=== PATIENT | female | born 1975 | race Caucasian/White ===

== ENCOUNTER 2024-01-14 14:34 | Outpatient (AMB) | payer OTHER, SELFPAY ==
[2024-01-14 15:15] VITALS: BP 131/78; PULSE 72; O2SAT 98; BMI 28.3
--- NOTE | 2024-01-14 15:15 | MHC.PC.OV ---
Vital Signs 01/14/24 15:15 Height 5 ft 5 in Weight 170 lb BMI 28.3 BP 131/78 Blood Pressure Location Rt brachial Pulse 72 Pulse Source Pulse Oximeter Pulse Oximetry (%) 98 Oxygen Delivery Method Room Air Intake Visit Reasons: New patient-high BP Intake Note: Patient is here with concern of cough, and high blood pressure, prison librarian referral, and allergy Allergies seafood Allergy (Mild, Verified 01/14/24 15:23) Anaphylaxis treenuts Allergy (Mild, Uncoded 01/14/24 15:23) rash, anaphylaxis Tobacco use date assessed: 01/14/24 Dental Screening Dental Screen Date: 01/14/24 Did you have a dental visit in the last 12 months?: Yes Did you have a dental problem in the last 6 months where you did not have access to dental care?: No Was dental information given to patient?: Patient has dentist HPI New patient-high BP HPI Details New patient Prior PCP:?Leena Sweeney Last office visit/CPE: September for HTN. CPE in March. Acute issue(s): Cough -Had covid in August. Denies any chest tightness/pain. She states she feels like it is a productive cough. Refer to Allergy Medicine. Tree nuts and seafood PMHx: HTN, Anaphylaxis/Allergies, Covid infection, Asthma, Gestational DM SurgHx: [place] teeth FHx: Mom: Diabetes, Endometrial/Uterine Cancer. Dad: DM, HTN, CVA. GM: Colon CA, SocHx: Nonsmoker. EtOH none. MJ no drugs. PFSH Medical History (Updated 01/14/24 @ 16:32 by Rosalino Lambert) Depression Anxiety Acute eczema Gestational diabetes Arthritis High blood pressure Asthma Surgical History (Updated 01/14/24 @ 15:27 by Jessenia Barreto CMA) [place] teeth extracted Family History (Updated 01/14/24 @ 15:29 by Jessenia Barreto CMA) Mother Diabetes Endometrial cancer Father High blood pressure High cholesterol Diabetes Maternal Grandmother Colon cancer Social History (Updated 01/14/24 @ 15:32 by Jessenia Barreto CMA) Household Members: Spouse and Children Housing: House Are you a primary women's health care nurse practitioner to a significant other at home: No Do you presently have visiting nurse or other home services: No 75 years or older and lives alone: No Alcohol intake: never Patient Tobacco Use Status: Never used Tobacco e-Cigarette/Vaping Use: Never Used service: No Current occupational status: employed 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 Cognitive needs: No Hearing needs: No Vision needs: No Questionnaire Thrive Questionnaire Date Thrive assessed: 01/14/24 I am a: Patient What is your living situation today?: I have a steady place to live Within the past 12 months, did the food you bought not last and you didn't have the money to get more?: Never true Within the past 12 months, did you worry whether your food would run out before you got money to buy more?: Never true Do you have trouble paying for medicines?: No Do you have trouble getting transportation to medical appointments?: No Do you have trouble paying your heating and electricity bill?: No Do you have trouble taking care of your child, family member or friend?: No Do you have trouble with day-to-day activities such as bathing, preparing meals, shopping, managing finances, etc.?: No Are you currently unemployed and looking for a job?: No Are you interested in more education?: No THRIVE Score: 0 AUDIT C Alcohol Use Questionnaire (AUDIT-C) 1. How often do you have a drink containing alcohol?: Never 3. How often do you have six or more drinks on one occasion?: Never Total Score: 0 RILEY-7 AMB Questionnaire RILEY-7 Date RILEY - 7 assessed: 01/14/24 Feeling nervous, anxious, or on edge: 0 = Not at all Not being able to stop or control worryin = Not at all Worrying too much about different things: 1 = Several days Trouble relaxin = Several days Being so restless that it is hard to sit still: 0 = Not at all Becoming easily annoyed or irritable: 0 = Not at all Feeling afraid as if something awful might happen: 0 = Not at all Total RILEY-7 score (0-4 normal; 5-9 mild; 10-14 moderate; 15-21 severe): 2 Source: Developed by Drs. John Paul Worrell, Esmer Parada, Everette Hay and colleagues, with an educational caleb from [employer]. ACT Questionnaire In the past 4 weeks, how much of the time did your asthma keep you from getting as much done at work, school or at home?: None of the time During the past 4 weeks, how often have you had shortness of breath?: Not at all During the past 4 weeks, how often did your asthma symptoms wake you up at night or earlier than usual in the morning?: Not at all During the past 4 weeks, how often have you had to use your rescue inhaler or nebulizer medication?: Not at all How would you rate your asthma control during the past 4 weeks?: Completely controlled Score: 25 Review of Systems Const Denies chills, Denies fatigue, Denies fever(s), Denies headache(s) and Denies weakness ENT Denies dizziness and Denies headache(s) Card Denies chest pain, Denies lightheadedness, Denies dyspnea and Denies other (Palpitations) Resp Denies cough, Denies dyspnea, Denies wheezing and Denies other ( shortness of breath) Musc Denies numbness and Denies tingling Neuro Denies dizziness, Denies headache(s), Denies numbness, Denies tingling, Denies paresthesias and Denies weakness Psych Denies anxiety and Denies depression Endo Denies fatigue Aller/Immun Denies wheezing Physical exam (Primary Care) Vital Signs: Last Vital Signs Pulse 72 01/14/24 15:15 BP 131/78 01/14/24 15:15 Pulse Ox 98 01/14/24 15:15 Oxygen Delivery Method Room Air 01/14/24 15:15 BMI result Body Mass Index 28.3 Tobacco/Smoking Status: Tobacco use Status Tobacco use date assessed 01/14/24 01/14/24 15:37 Patient Tobacco Use Status Never used Tobacco 01/14/24 15:37 e-Cigarette/Vaping Use Never Used 01/14/24 15:37 Thrive Assessment: Date of Thrive Assessment Date Thrive assessed 01/14/24 01/14/24 15:37 Const General: no acute distress and well developed Nutritional Appearance: well nourished Orientation/consciousness: patient oriented x3 HENMT Head: Yes normocephalic and Yes atraumatic Eyes General: appearance normal, both eyes and all related structures Pupils: Equal, round and reactive pupils present EOM: EOMs intact bilaterally Resp Other: Wheezes in lungs Effort & Inspection: normal respiratory effort Auscultation: not clear to auscultation bilaterally Cardio Rate: regular rate Rhythm: regular rhythm Heart sounds: S1 normal heart sound present, S2 normal heart sound present, no gallops, no murmurs and no rubs Neuro General: patient oriented x3 and gait normal Cranial nerves: Yes Equal, round and reactive pupils present Psych Affect: normal affect Assessment and Plan Assessment & Plan (1) Cough: Code(s): R05.9 - Cough, unspecified Plan: Ongoing?cough?since?COVID?infection?in?August?and?history?of?asthma. She?does?have?some?scattered?wheezing Likely?reactive?airway?process?and?possible?return?of?asthma.??She?also?has?a?history?of?allergy/anaphylaxis?so?likely?some?atopy. Start?albuterol She?can?try?some?Mucinex She?may?also?want?to?try?some?OTC?Zyrtec May?need?an?inhaled?steroid?or?referral?to?pulmonology?if?not?improving (2) High blood pressure: Code(s): I10 - Essential (primary) hypertension Plan: Blood?pressure?is?controlled?on?atenolol.??Goal?is?less?than?140/90 Continue?current?medication. 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 Plan: Anaphylaxis?reaction?to?tree?nuts Referred?to?immunology She?has?an?EpiPen (6) Reactive airway disease: Code(s): J45.909 - Unspecified asthma, uncomplicated Plan: As?above (7) Screening for cervical cancer: Code(s): Z12.4 - Encounter for screening for malignant neoplasm of cervix Plan: Referred?to?OBGYN?for?family?planning-patient?on?Depo?Provera Also?can?follow?her?for?screening?for?cervical?cancer (8) Laboratory exam ordered as part of routine general medical examination: Code(s): Z00.00 - Encounter for general adult medical examination without abnormal findings Plan: Check?labs Plan Also?ordered?her?mammogram?which?she?says?she?is?due?for.??We?can?follow-up?on?this?if?results?are?available?at?her?next?visit Orders: Orders Comprehensive [place]. Panel Fast Today Z00.00 - Encounter for general adult medical examination without abnormal findings Microalbumin, Random (w Creat) Today I10 - Essential (primary) hypertension TSH reflex Free T4 Today Z00.00 - Encounter for general adult medical examination without abnormal findings UA and rflx microscopic Today Z00.00 - Encounter for general adult medical examination without abnormal findings Lipid Panel Today Z00.00 - Encounter for general adult medical examination without abnormal findings Vitamin D 25-OH Total Today E55.9 - Vitamin D deficiency, unspecified MM tomosynthesis screening BI Today Z12.31 - Encounter for screening mammogram for malignant neoplasm of breast Referrals [employer] EXP[employer] Referral Z12.4 - Encounter for screening for malignant neoplasm of cervix, Z30.09 - Encounter for other general counseling and advice on contraception Allergy & Immunology Referral J45.909 - Unspecified asthma, uncomplicated, Z91.013 - Allergy to seafood, Z91.018 - Allergy to other foods Coding Level of Care Code New Pt Level 4 (21092) Diagnoses Cough R05.9 High blood pressure I10 Asthma J45.909 Seafood allergy Z91.013 Tree nut allergy Z91.018 Reactive airway disease J45.909 Screening for cervical cancer Z12.4 Laboratory exam ordered as part of routine general medical examination Z00.00
== END 2024-01-14 16:41 | disposition home or self-care (01) ==
PROVIDERS: PCP Family Medicine; Visit Provider Family Medicine
DX: R05.9 Cough, unspecified (principal); I10 Essential (primary) hypertension; J45.909 Unspecified asthma, uncomplicated; Z91.013 Allergy to seafood; Z91.018 Allergy to other foods; Z12.4 Encounter for screening for malignant neoplasm of cervix; Z00.00 Encounter for general adult medical examination without abnormal findings
CPT/HCPCS: 99204

== ENCOUNTER 2024-01-15 09:33 | Outpatient (REF) | payer OTHER, SELFPAY ==
[2024-01-15 11:24] LABS: Appearance Urine Clear; Color Urine Yellow; Glucose Urine UA Negative (Negative); Leukocyte Esterase Urine Trace (Negative); Nitrite Urine Negative (Negative); UMIC TRIGGER UA YES; Urine Blood Moderate (2+) (Negative); Urine Ketones Negative (Negative); Urine Protein Negative (Neg-Trace)
[2024-01-15 11:28] LABS: Bacteria Urine None Seen (None Seen); Hyaline Casts Urine 0-2 /LPF (0-2); WBC Urine 0-5 /HPF (0-5)
[2024-01-15 11:52] LABS: Creatinine Urine 82.12 mg/dL; Microalbum/Creatinine Ratio Ur 24.3 ug/mg cr (<30)
[2024-01-15 12:02] LABS: Alanine Aminotransferase 26 U/L (0-31); Alkaline Phosphatase 49 U/L (39-117); Anion Gap 10 (12-20); Aspartate Amino Transferase 22 U/L (5-31); Bilirubin Total 0.7 mg/dL (0.0-1.0); Blood Urea Nitrogen 10 mg/dL (9-16); Calcium 8.8 mg/dL (8.4-10.2); Carbon Dioxide 27 mmol/L (22-29); Chloride 107 mmol/L (96-108); Cholesterol 181 mg/dL (<200); Estimated Glomerular Filt Rate > 60; Glucose Fasting 105 mg/dL (60-99); HDL Cholesterol 42 mg/dL (>40); LDL Cholesterol Calculated 123 mg/dL (<100); Potassium 3.7 mmol/L (3.3-5.1); Sodium 140 mmol/L (135-145); Total Protein 7.4 g/dL (6.5-8.0); Triglycerides 84 mg/dL (<150)
[2024-01-15 12:04] LABS: TSH reflex Free T4 1.54 uIU/mL (0.32-4.0); Vitamin D 25-OH Total 66.7 ng/mL (>30)
== END 2024-01-15 09:34 | disposition home or self-care (01) ==
LOC: HO.WFDLDS 09:33
PROVIDERS: Visit Provider Family Medicine
DX: Z00.00 Encounter for general adult medical examination without abnormal findings (principal); E55.9 Vitamin D deficiency, unspecified; I10 Essential (primary) hypertension
CPT/HCPCS: 36415; 80053; 80061; 81001; 82043; 82306; 82570; 84443

== ENCOUNTER 2024-02-19 11:32 | Outpatient (REF) | payer OTHER, SELFPAY | END 2024-02-19 11:33 | disposition home or self-care (01) | LOC: HO.MAMMO 11:32 | PROVIDERS: PCP Family Medicine; Visit Provider Family Medicine | DX: Z12.31 Encounter for screening mammogram for malignant neoplasm of breast (principal) | CPT/HCPCS: 77063; 77067 ==

== ENCOUNTER → 2024-02-19 11:45 | Outpatient (BNV) | payer OTHER, SELFPAY | PROVIDERS: PCP Family Medicine; Visit Provider Radiology Diagnostic Radiology | DX: Z12.31 Encounter for screening mammogram for malignant neoplasm of breast (principal) | CPT/HCPCS: 77063; 77067 ==

== ENCOUNTER 2024-03-04 09:25 | Outpatient (AMB) | payer OTHER, SELFPAY ==
[2024-03-04 09:34] VITALS: BP 118/70; BMI 28.3
--- NOTE | 2024-03-04 09:34 | MHC.OFFVIS ---
Intake Vital Signs 03/04/24 09:34 Height 5 ft 5 in Weight 170 lb BMI 28.3 BP 118/70 Intake Visit Reasons: New patient Annual Steel Fitter Required: No Information Interpreted: clinical only Sports Management Internship: Sports Management Internship Present Allergies seafood Allergy (Mild, Verified 03/04/24 09:36) Anaphylaxis treenuts Allergy (Mild, Uncoded 03/04/24 09:36) rash, anaphylaxis Medication List - Last Reconciled 03/04/24 by Yesenia Damon CNM albuterol sulfate 90 mcg/actuation (ProAir HFA) 2 puffs inhalation Q4-6H PRN 30 days atenolol 50 mg PO DAILY cholecalciferol (vitamin D3) 250 mcg PO DAILY epinephrine (EpiPen) 0.3 mg IM Q4H PRN medroxyprogesterone (Depo-Provera) 150 mg IM [id number] multivitamin 1 tab PO DAILY Is last menstrual period known: No (depo inj.) HPI New patient Annual HPI Details 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 She used to go to [place] but she is switching over to us. She just had a new visit with her new primary care provider recently and will have a full exam with him coming up. She said she has already had the blood work done and she did not get a call so she is assuming things were okay she recently had her mammogram done and again has not heard any called back necessary. She has 2 children delivered vaginally she had lots of complications being 41 years old and having gestational diabetes with the last 1 and she is absolutely not interested in . She has been on Depo-Provera since 2016 she also does not want to have her painful periods return. She has had lengthy discussions with her previous providers at [facility] about recommendations for switching to a Mirena IU S for long-term control and menses management and she understands that there is a risk to her bones for long-term Depo use but she is absolutely not interested in that and wants to continue on the Depo-Provera until she is through menopause. She does drink milk and gets enough calcium in her diet and she walks for exercise and she also does tap and jazz dancing at least weekly. She dances with a group and they will have their yearly recital coming up in April. 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 She has no concerns about any kind of infection. She avoids vaginal intercourse and so does not feel she is at risk of an unintended . She was due for her last Depo-Provera February 13 but because of the transitioning to a new practice was not able to get it and is afraid she will start bleeding any time soon and wants to preempt that. [facility] Medical History Depression Anxiety Acute eczema Gestational diabetes Arthritis High blood pressure Asthma Surgical History [place] teeth extracted Family History Mother Diabetes Endometrial cancer Father High blood pressure High cholesterol Diabetes Maternal Grandmother Colon cancer Social History Household Members: Spouse and Children Housing: House Are you a primary caretaker to a significant other at home: No Do you presently have visiting nurse or other home services: No 75 years or older and lives alone: No Alcohol intake: never Patient Tobacco Use Status: Never used Tobacco e-Cigarette/Vaping Use: Never Used service: No Current occupational status: employed 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 Cognitive needs: No Hearing needs: No Vision needs: No Female Reproductive History Menstrual Age of Menarche: 13 Duration of menses: 3-5 days control method: progesterone injection Total pregnancies: 2 Full term: 2 Date of last pap smear: 12/24/21 (negative,per patient) History of abnormal pap smear: No Date of Mammogram: 02/19/24 Physical Exam Vital Signs: Last Vital Signs BP 118/70 03/04/24 09:34 BMI result Body Mass Index 28.3 Const General: healthy appearing, comfortable, no acute distress, well developed and alert Nutritional Appearance: average body habitus Orientation/consciousness: patient oriented x3 Limitations: no limitations HEENT Head: Yes normocephalic Neck Neck: Yes normal visual inspection Chest Chest palpation & inspection: normal inspection of the chest Breast/axilla inspection: normal inspection of the breasts and normal inspection of the axillae Breast/axilla palpation: normal palpation of the breasts and normal palpation of the axillae Resp Effort & Inspection: normal respiratory effort GI Inspection: Yes normal to inspection, No Abdominal wall edema and No distended Palpation (GI): Soft to palpation and nontender General: Yes bladder normal to palpation External Female Exam: normal external appearance and normal appearance of the urethra Speculum Exam - Vagina: normal appearance of the vagina, normal palpation and normal vaginal discharge Speculum Exam - Cervix: normal appearance of the cervix, normal palpation and nontender Bimanual exam- vagina & uterus: normal bimanual exam, normal palpation, uterine size normal, bladder normal to palpation, consistency normal, normal palpation, uterine mobility normal, uterine shape normal, No Cervical tenderness present, non-tender and no cervical motion tenderness Bimanual Exam- Adnexa, other: normal adnexae, no masses, normal and No adnexal tenderness Neuro General: patient oriented x3 Assessment & Plan Assessment & Plan (1) Well woman exam with routine gynecological exam: Code(s): Z01.419 - Encounter for gynecological examination (general) (routine) without abnormal findings (2) On Depo-Provera for contraception: Comment: Patient has been on Depo since 2016 is not interested in a Mirena does not want return of heavy menses. Last injection was due February 13 restart a sap, denies any risk of , continue abstaining until at least 2 weeks after Depo restart. Discussed calcium intake weight-bearing exercise and protection of bones. Code(s): Z30.42 - Encounter for surveillance of injectable contraceptive (3) Cervical cancer screening: Comment: Pap done 03/04/2024. Code(s): Z12.4 - Encounter for screening for malignant neoplasm of cervix Plan -----Discussed in this visit the following: healthy balanced diet, regular and consistent exercise, getting recommended health screens, doing the best she can for her particular health concerns, kegel exercises, pap smear screening and followup recommendations, mammography screening and SBE, normal changes in cycles in her life stage--- . I reviewed what she already had been told about the concern about long-term use of Depo-Provera and its affect on her bone health. To counteract that she does make sure she gets enough calcium in her diet and she does weight-bearing exercise between the walking and dancing to keep herself healthy. She already has had her mammogram she is getting everything straight with her new primary care provider and will be having a follow-up visit with him and I recommended having discussions about bone health as well as I do not manage that. She is very clear that she wants to continue on the Depo-Provera so I have ordered it for her to be given a sap and she will ensure that she avoids unprotected sex until at least 2 weeks after she gets the Depo we did discuss that it is possible that she may bleed at any point and she is mindful of that. Pap done as she did not know exactly when the last Pap was done but knew it was not done last year testing for gonorrhea chlamydia trichomoniasis Gardnerella and Isi done for thoroughness exam completely within normal limits also reviewed doing Kegel exercises to maintain vaginal tone pelvic floor tone. 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
== END 2024-03-04 10:42 | disposition home or self-care (01) ==
PROVIDERS: PCP Family Medicine; Visit Provider Advanced Practice Midwife
DX: Z01.419 Encounter for gynecological examination (general) (routine) without abnormal findings (principal); Z30.42 Encounter for surveillance of injectable contraceptive; Z12.4 Encounter for screening for malignant neoplasm of cervix
CPT/HCPCS: 99386

== ENCOUNTER 2024-03-04 09:25 | Outpatient (REF) | payer OTHER, SELFPAY ==
[2024-03-05 08:13] LABS: CT PCR NOT DETECTED (Not Detect.); NG PCR NOT DETECTED (Not Detect.)
[2024-03-05 13:04] LABS: BV Int Neg Control Negative (Negative); BV Int Pos Control Positive (Positive)
[2024-03-12 23:29] LABS: HPV mRNA E6/E7 rflx Not Detected (Not Detected)
== END 2024-03-04 09:26 | disposition home or self-care (01) ==
LOC: HO.LAB 09:25
PROVIDERS: PCP Family Medicine; Visit Provider Advanced Practice Midwife
DX: Z01.419 Encounter for gynecological examination (general) (routine) without abnormal findings (principal); Z11.51 Encounter for screening for human papillomavirus (HPV); Z20.2 Contact with and (suspected) exposure to infections with a predominantly sexual mode of transmission
CPT/HCPCS: 0353U; 87480; 87510; 87624; 87660; 88142

== ENCOUNTER 2024-03-18 08:54 | Outpatient (AMB) | payer OTHER, SELFPAY ==
[2024-03-18 09:27] VITALS: BMI 26.1
--- NOTE | 2024-03-18 09:27 | AM.OFFVISNUR ---
Intake Vital Signs 03/18/24 09:27 Height 5 ft 5 in Weight 71.214 kg BMI 26.1 Intake Visit Reasons: DEPO Allergies seafood Allergy (Mild, Verified 03/04/24 09:36) Anaphylaxis treenuts Allergy (Mild, Uncoded 03/04/24 09:36) rash, anaphylaxis Nursing Note Estrella is here today for her Depo-provera inj. She is a new pt and saw Keyur Damon. Pts previous inj was 11/28/23 at [facility]. She missed her appt there due to ins issues. test today is negative. Inj given, pt tolerated well. Follow up in 12 weeks for next injection. Office Procedures Depo Questionnaire If YES to any of the following questions, please consult a provider. Date of last injection: 11/28/23 Menstrual pattern since last injection has been: Normal test in office results: Negative Irregular bleeding?: No Breast lumps or other breast changes?: No Changes in weight or appetite?: No Depression or changes in mood?: No Abnormal hair growth or loss?: No Skin problems (rash, acne, discoloration)?: No Pain at the injection site?: No Headaches?: No Nervousness?: No Abdominal pain or cramping?: No Dizziness or nausea?: No Fatigue or weakness?: No Decrease in sexual drive?: No Chest pain or shortness of breath?: No Swelling in arms or legs?: No Form completed by?: Gayle olvera LPN Office Meds Depo-Provera 150 mg/mL intramuscular syringe Performing Provider: Yesenia Damon CNM Performing Location: [facility] Administered by: Tanya Olvera LPN on 03/18/24 09:27 Dose Route Admin Location Dispensed Lot Number Expiration Date [facility] [employer] 150 mg IM rt. deltoid 1 mL [id number] 02/22/26 [id number] [facility] Results AMB Test Urine AMB Test Urine Negative Last Edit by Tanya Olvera LPN on 03/18/24 09:34 Coding Level of Care Code Established Pt Est Pt Level 1 (67714) Patient Type Established History Problem Focused Exam Problem Focused Medical Decision Making Straight Forward Time Spent (min) 20 Assessment & Plan Assessment & Plan Orders: Orders AMB Medroxyprogesterone Injection Patient Supplied Today Z30.42 - Encounter for surveillance of injectable contraceptive Medications: New Depo-Provera (medroxyprogesterone) 150 mg IM ONCE 1 mL 0RF NS Z30.42 - Encounter for surveillance of injectable contraceptive
== END 2024-03-18 09:40 | disposition home or self-care (01) ==
PROVIDERS: PCP Family Medicine; Visit Provider Advanced Practice Midwife
DX: Z30.42 Encounter for surveillance of injectable contraceptive (principal)

== ENCOUNTER → 2024-03-18 08:54 | Outpatient (BNVA) | payer OTHER, SELFPAY | PROVIDERS: PCP Family Medicine; Visit Provider Advanced Practice Midwife | DX: Z30.42 Encounter for surveillance of injectable contraceptive (principal) | CPT/HCPCS: 96372; 99211; J1050 ==

== ENCOUNTER 2024-04-29 10:50 | Outpatient (AMB) | payer OTHER, SELFPAY ==
[2024-04-29 11:22] VITALS: BP 122/68; PULSE 73; O2SAT 98; BMI 28.1
--- NOTE | 2024-04-29 11:22 | A.OFFPC_ITS ---
Vital Signs 04/29/24 11:22 Height 5 ft 5 in Weight 169 lb BMI 28.1 BP 122/68 Blood Pressure Location Lt brachial Pulse 73 Pulse Source Pulse Oximeter Pulse Oximetry (%) 98 Oxygen Delivery Method Room Air Intake Visit Reasons: CPE with f/u labs and health maint Intake Note: Patient is here for physical and would like refill of Atenolol. She states Allergies seafood Allergy (Mild, Verified 04/29/24 11:24) Anaphylaxis treenuts Allergy (Mild, Uncoded 04/29/24 11:24) rash, anaphylaxis Medication List - Last Reconciled 04/29/24 by Ross Ocampo MD albuterol sulfate 90 mcg/actuation (ProAir HFA) 2 puffs inhalation Q4-6H PRN 30 days atenolol 50 mg PO DAILY cholecalciferol (vitamin D3) 250 mcg PO DAILY clonidine HCl 0.1 mg PO BID epinephrine (EpiPen) 0.3 mg IM Q4H PRN escitalopram oxalate mg PO medroxyprogesterone (Depo-Provera) 150 mg IM B1CVPWCI medroxyprogesterone (Depo-Provera) 150 mg IM Q12W multivitamin 1 tab PO DAILY Tobacco use date assessed: 01/14/24 Dental Screening Dental Screen Date: 01/14/24 HPI CPE with f/u labs and health maint HPI Details 48 y/o female presents for a CPE with f/ u labs and health maintenance. Labs were drawn 01/15/24. Reviewed labs with pt. Elevated fasting glucose of 105. A1c today 04/29/24 is 5.7%. TC 181. LDL 123. HDL 42. Mammogram 02/19/24 was negative. Blood pressure today 122/68. She is on atenolol 50mg daily. She dances for exercise. HPI Comments History of Present Illness Details Documentation assistance for Ross Ocampo MD, was provided by Rosalino Lambert, Vice President Of Business Development on 04/29/2024 at 11:49 AM COCO. I, Dr. Ocampo, have read, observed, and verified documentation. [facility] Medical History Depression Anxiety Acute eczema Gestational diabetes Arthritis High blood pressure Asthma Surgical History [place] teeth extracted Family History Mother Diabetes Endometrial cancer Father High blood pressure High cholesterol Diabetes Maternal Grandmother Colon cancer Social History Household Members: Spouse and Children Housing: House Are you a primary care services manager to a significant other at home: No Do you presently have visiting nurse or other home services: No 75 years or older and lives alone: No Alcohol intake: never Patient Tobacco Use Status: Never used Tobacco e-Cigarette/Vaping Use: Never Used service: No Current occupational status: employed 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 1. Little interest or pleasure in doing things: not at all 2. Feeling down, depressed, or hopeless: not at all 3. Trouble falling or staying asleep, or sleeping too much: not at all 4. Feeling tired or having little energy: several days 5. Poor appetite or overeating: not at all 6. Feeling bad about yourself - or that you are a failure or have let yourself or your family down: not at all 7. Trouble concentrating on things, such as reading the newspaper or watching television: not at all 8. Moving or speaking so slowly that other people could have noticed. Or the opposite - being so fidgety or restless that you have been moving around a lot more than usual: not at all 9. Thoughts that you would be better off or of hurting yourself in some way: not at all Total score: 1 Depression Screening Interpretation: Negative Depression Screening Done: Yes 09015 - PHQ-9 Billing: Yes Source: Developed by Drs. John Paul Worrell, Esmer Parada, Everette Hay and colleagues, with an educational caleb from [employer]. Thrive Questionnaire Date Thrive assessed: 04/29/24 I am a: Patient What is your living situation today?: I have a steady place to live Within the past 12 months, did the food you bought not last and you didn't have the money to get more?: Never true Within the past 12 months, did you worry whether your food would run out before you got money to buy more?: Never true Do you have trouble paying for medicines?: No Do you have trouble getting transportation to medical appointments?: No Do you have trouble paying your heating and electricity bill?: No Do you have trouble taking care of your child, family member or friend?: No Do you have trouble with day-to-day activities such as bathing, preparing meals, shopping, managing finances, etc.?: No Are you currently unemployed and looking for a job?: No Are you interested in more education?: No THRIVE Score: 0 RILEY-7 AMB Questionnaire RILEY-7 Date RILEY - 7 assessed: 01/14/24 Source: Developed by Drs. John Paul Worrell, Esmer Parada, Everette Hay and colleagues, with an educational caleb from [employer]. ACT Questionnaire In the past 4 weeks, how much of the time did your asthma keep you from getting as much done at work, school or at home?: None of the time During the past 4 weeks, how often have you had shortness of breath?: 3-6 times a week During the past 4 weeks, how often did your asthma symptoms wake you up at night or earlier than usual in the morning?: Not at all During the past 4 weeks, how often have you had to use your rescue inhaler or nebulizer medication?: 1-2 times a week (every day use) How would you rate your asthma control during the past 4 weeks?: Somewhat controlled Score: 18 Review of Systems Const Denies chills, Denies fatigue, Denies fever(s), Denies headache(s) and Denies weakness Eyes Denies change in vision ENT Denies dizziness, Denies headache(s), Denies hearing loss, Denies nasal congestion, Denies sinus pain, Denies sinus pressure and Denies sore throat Card Denies chest pain, Denies lightheadedness, Denies dyspnea and Denies other (palpitations) Resp Denies cough, Denies dyspnea and Denies wheezing GI Denies abdominal pain, Denies melena, Denies hematochezia, Denies change in bowel habits, Denies dyspepsia and Denies nausea Denies hematuria and Denies dysuria Musc Denies abnormal gait, Denies myalgias, Denies arthralgias, Denies numbness and Denies tingling Skin/Breast Denies rash, Denies unusual bruising and Denies wounds Neuro Denies abnormal gait, Denies dizziness, Denies headache(s), Denies memory loss, Denies numbness, Denies Sensory deficit (Neuro), Denies tingling and Denies weakness Psych Denies anxiety, Denies depression and Denies memory loss Endo Denies cold intolerance, Denies fatigue, Denies heat intolerance, Denies polydipsia and Denies polyuria Earnest/Lymph Denies easy bleeding and Denies easy bruising Aller/Immun Denies wheezing Physical exam (Primary Care) Vital Signs: Last Vital Signs Pulse 73 04/29/24 11:22 BP 122/68 04/29/24 11:22 Pulse Ox 98 04/29/24 11:22 Oxygen Delivery Method Room Air 04/29/24 11:22 BMI result Body Mass Index 28.1 Tobacco/Smoking Status: Tobacco use Status Tobacco use date assessed 01/14/24 04/29/24 11:23 Patient Tobacco Use Status Never used Tobacco 04/29/24 11:23 e-Cigarette/Vaping Use Never Used 04/29/24 11:23 PHQ-9: PHQ-9 Score PHQ-9: Total score 1 04/29/24 11:48 Depression Screening Interpretation: Negative Thrive Assessment: Date of Thrive Assessment Date Thrive assessed 04/29/24 04/29/24 11:33 Const General: no acute distress, well developed, alert and awake Nutritional Appearance: well nourished Orientation/consciousness: patient oriented x3 HENMT Head: Yes normocephalic and Yes atraumatic Ears: hearing grossly normal bilaterally and TM's normal bilaterally General nose exam: Normal external nose present and Normal nares present Mouth: Normal oral and palatal mucosa present and moist mucous membranes Teeth and gingiva: dentition normal Throat: Yes posterior oropharynx normal Eyes General: appearance normal, both eyes and all related structures Pupils: Equal, round and reactive pupils present and Pupil accommodation reflex normal EOM: EOMs intact bilaterally Neck Neck: Yes normal visual inspection, Yes no lymphadenopathy and Yes trachea midline Thyroid: Thyroid normal Carotids: no bruits Lymphatic: no lymphadenopathy noted Chest Chest palpation & inspection: normal inspection of the chest Resp Effort & Inspection: normal respiratory effort Auscultation: clear to auscultation bilaterally Cardio Rate: regular rate Rhythm: regular rhythm Heart sounds: S1 normal heart sound present, S2 normal heart sound present, no gallops, no murmurs and no rubs Bruits: no abdominal aortic bruits and no carotid bruits GI Palpation (GI): No Abdominal aortic bruit present, Soft to palpation, nontender, No hepatosplenomegaly present and No Rebound tenderness present Auscultation: normal bowel sounds General: Yes no CVA tenderness Back/Spine/Pelvis Back: no CVA tenderness Cervical Spine: cervical ROM normal and No Cervical spine tenderness Thoracic/Lumbar Spine: thoraco-lumbar ROM normal, No pain with thoraco-lumbar ROM, No thoracic spinal tenderness and No lumbar spinal tenderness Skin Lesions: no lesions Rashes: no rashes Trauma: no lacerations or abrasions Wounds: no wounds Nails: normal Neuro General: patient oriented x3 Cranial nerves: Yes Equal, round and reactive pupils present Cognition (Neuro): normal cognition Gait exam (Neuro): Normal gait present Motor exam (neuro): 5/5 motor strength present throughout Sensory Exam: No Sensory deficit (Neuro) Deep tendon reflexes (DTR's): Right patellar reflex intensity grade: 2+ and Left patellar reflex intensity grade: 2+ Extrem General: Yes normal to inspection and No edema Psych Appearance: grossly normal Affect: normal affect Attitude: cooperative Thought process: Normal thought process present Assessment and Plan Assessment & Plan (1) Adult general medical exam: Code(s): Z00.00 - Encounter for general adult medical examination without abnormal findings Plan: 48-year-old?female?presents?for?complete?physical?exam Encouraged?healthy?diet?with?active?lifestyle?and?plenty?of?exercise (2) High blood pressure: Code(s): I10 - Essential (primary) hypertension Plan: Blood?pressure?is?controlled.??Goal?is?less?than?140/90 She?is?on?atenolol?which?may?not?be?the?best?choice?for a?patient?with?asthma?however?it?is?also?being?used?to?treat?elevated?heart?rate ?and?palpitations. Will?continue?this. Patient?is?referred?to?pulmonology?and?can?advise?if?this?medication?should?be?c hanged. (3) Asthma: Code(s): J45.909 - Unspecified asthma, uncomplicated Plan: Patient?notes?poor?control?of?her?asthma Changing?ProAir?to?Ventolin?as?she?says?the?ProAir?is?no?longer?being?covered Will?also?give?her?Breo?Ellipta?for?controller?medication Referred?to?pulmonology (4) Elevated LDL cholesterol level: Code(s): E78.00 - Pure hypercholesterolemia, unspecified Plan: Encouraged?lifestyle?changes (5) Wrist pain: Code(s): M25.539 - Pain in unspecified wrist Plan: Prior?EMG?and?diagnosis?of?carpal?tunnel Continue?wrist?braces?at?night?and?can?try?Marcel?wraps?while?working. NSAIDs?and?ice/heat Frequent?breaks?when?using?computer If?not?improving?will?refer?to?hand?surgeon (6) Pre-diabetes: Code(s): R73.03 - Prediabetes Plan: A1c?5.7%?and?fasting?blood?sugar?was?105 Pre?diabetes Encouraged?diet?lower?in?sugars?and?starches Will?follow (7) Screening for colon cancer: Code(s): Z12.11 - Encounter for screening for malignant neoplasm of colon Plan: Referred?to?GI (8) Breast cancer screening by mammogram: Code(s): Z12.31 - Encounter for screening mammogram for malignant neoplasm of breast Plan: Mammogram?in?January?was?negative?for?malignancy Continue?annual?screening (9) Cervical cancer screening: Comment: Pap done 03/04/2024= negative with negative HPV. Code(s): Z12.4 - Encounter for screening for malignant neoplasm of cervix Plan: Pap?smear?in?February?was?negative?with?negative?HPV. Follow-up?with?gas or petroleum operator?as?recommended Orders: Referrals Gastroenterology Referral Z12.11 - Encounter for screening for malignant neoplasm of colon Pulmonology Referral J45.909 - Unspecified asthma, uncomplicated Medications: New albuterol sulfate 90 mcg/actuation (Ventolin HFA) 2 puffs inhalation Q4-6H 30 days PRN 8.5 grams 4RF shortness of breath or wheezing J45.909 - Unspecified asthma, uncomplicated fluticasone furoate-vilanterol 100-25 mcg/dose (Breo Ellipta) 1 inh inhalation Q24H 30 days 60 ea 3RF J45.909 - Unspecified asthma, uncomplicated Changed From atenolol 50 mg PO DAILY To atenolol 50 mg PO DAILY 90 days 90 tabs 2RF Discontinued albuterol sulfate 90 mcg/actuation (ProAir HFA) Discontinued Reason: Doctor's Order 2 puffs inhalation Q4-6H 30 days PRN 8.5 grams 0RF shortness of breath or wheezing Coding Level of Care Code Est Pt Level 3 (16398) Est Pt Prev Care 40-64y(34517) Diagnoses Adult general medical exam Z00.00 High blood pressure I10 Asthma J45.909 Elevated LDL cholesterol level E78.00 Wrist pain M25.539 Pre-diabetes R73.03 Screening for colon cancer Z12.11 Breast cancer screening by mammogram Z12.31 Cervical cancer screening Z12.4
== END 2024-04-29 12:34 | disposition home or self-care (01) ==
PROVIDERS: PCP Family Medicine; Visit Provider Family Medicine
DX: Z00.00 Encounter for general adult medical examination without abnormal findings (principal); I10 Essential (primary) hypertension; J45.909 Unspecified asthma, uncomplicated; E78.00 Pure hypercholesterolemia, unspecified; M25.539 Pain in unspecified wrist; R73.03 Prediabetes; Z12.11 Encounter for screening for malignant neoplasm of colon; Z12.31 Encounter for screening mammogram for malignant neoplasm of breast; Z12.4 Encounter for screening for malignant neoplasm of cervix; Z13.9 Encounter for screening, unspecified
CPT/HCPCS: 83036; 99213; 99396

== ENCOUNTER 2024-06-12 10:59 | Outpatient (AMB) | payer OTHER, SELFPAY ==
[2024-06-12 11:23] VITALS: BMI 28.6
--- NOTE | 2024-06-12 11:23 | AM.OFFVISNUR ---
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 No c/o. Pt tolerated injection well and was advised to schedule her next injection in 12 weeks. Pt verbalizes understanding and agrees with plan. No further questions. Office Procedures Depo Questionnaire If YES to any of the following questions, please consult a provider. Date of last injection: 03/18/24 Date of last gynecology exam: 03/04/24 Menstrual pattern since last injection has been: Not Applicable Irregular bleeding?: No Breast lumps or other breast changes?: No Changes in weight or appetite?: No Depression or changes in mood?: No Abnormal hair growth or loss?: No Skin problems (rash, acne, discoloration)?: No Pain at the injection site?: No Headaches?: No Nervousness?: No Abdominal pain or cramping?: No Dizziness or nausea?: No Fatigue or weakness?: No Decrease in sexual drive?: No Chest pain or shortness of breath?: No Swelling in arms or legs?: No Form completed by?: Char Lopez RN Office Meds Depo-Provera 150 mg/mL intramuscular syringe Performing Provider: Yesenia Damon CNM Performing Location: [facility] Administered by: Char Lopez on 06/12/24 11:01 Dose Route Admin Location Dispensed Lot Number Expiration Date [facility] Cosmetologist 150 mg IM right deltoid 1 mL [id number] 06/24/26 16445-430-66 [facility] Assessment & Plan Assessment & Plan Orders: Orders AMB Medroxyprogesterone Injection Patient Supplied Today Z30.42 - Encounter for surveillance of injectable contraceptive Medications: New Depo-Provera (medroxyprogesterone) 150 mg IM ONCE 1 mL 0RF NS Z30.42 - Encounter for surveillance of injectable contraceptive
== END 2024-06-12 11:10 | disposition home or self-care (01) ==
LOC: HO.HWS 10:59
PROVIDERS: PCP Family Medicine; Visit Provider Advanced Practice Midwife
DX: Z30.42 Encounter for surveillance of injectable contraceptive (principal)

== ENCOUNTER → 2024-06-12 10:59 | Outpatient (BNVA) | payer OTHER, SELFPAY | PROVIDERS: PCP Family Medicine; Visit Provider Advanced Practice Midwife | DX: Z30.42 Encounter for surveillance of injectable contraceptive (principal) | CPT/HCPCS: 96372; 99211; J1050 ==

== ENCOUNTER 2024-07-29 09:37 | Outpatient (AMB) | payer OTHER, SELFPAY ==
--- NOTE | 2024-07-29 10:12 | MHC.PC.OV ---
Vital Signs 07/29/24 10:20 Height 5 ft 5 in Weight 171 lb BMI 28.5 BP 111/71 Blood Pressure Location Rt brachial Position Sitting Respiration 18 Pulse 67 Pulse Source Pulse Oximeter Temp 98.6 F Temp Source Temporal Artery Scan Pulse Oximetry (%) 98 Oxygen Delivery Method Room Air Intake Visit Reasons: f/u hypertension, pre-diabetes Intake Note: F/U for HTN, DM Allergies seafood Allergy (Mild, Verified 07/29/24 10:18) Anaphylaxis treenuts Allergy (Mild, Uncoded 04/29/24 11:24) rash, anaphylaxis Tobacco use date assessed: 01/14/24 Dental Screening Dental Screen Date: 01/14/24 HPI f/u hypertension, pre-diabetes HPI Details 49 y/o female presents to f/u hypertension, pre-diabetes. Last A1c 04/29/24 5.7%. A1c today 07/29/24 is 5.7%. Blood pressure today is 111/71, 67p. She is on atenolol 50mg daily. Pt notes she had been unable to fill up her mometasone as her insurance does not cover this. HPI Comments History of Present Illness Details Documentation assistance for Ross Ocampo MD, was provided by Rosalino Lambert, Furnace Helper on 07/29/2024 at 10:29 AM EST. I, Dr. Ocampo, have read, observed, and verified documentation. [facility] Medical History Depression Anxiety Acute eczema Gestational diabetes Arthritis High blood pressure Asthma Surgical History [place] teeth extracted Family History Mother Diabetes Endometrial cancer Father High blood pressure High cholesterol Diabetes Maternal Grandmother Colon cancer Social History Household Members: Spouse and Children Housing: House Are you a primary pet caregiver to a significant other at home: No Do you presently have visiting nurse or other home services: No 75 years or older and lives alone: No Alcohol intake: never Patient Tobacco Use Status: Never used Tobacco e-Cigarette/Vaping Use: Never Used service: No Current occupational status: employed 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 John Paul Worrell, Esmer Parada, Everette Hay and colleagues, with an educational caleb from [employer]. Review of Systems Const Denies chills, Denies fatigue, Denies fever(s), Denies headache(s) and Denies weakness ENT Denies dizziness and Denies headache(s) Card Denies dyspnea Resp Denies cough, Denies dyspnea, Denies wheezing and Denies other (shortness of breath) Musc Denies numbness and Denies tingling Neuro Denies dizziness, Denies headache(s), Denies numbness, Denies tingling and Denies weakness Psych Denies anxiety and Denies depression Endo Denies fatigue Aller/Immun Denies wheezing Physical exam (Primary Care) Vital Signs: Last Vital Signs Temp 98.6 F 07/29/24 10:20 Pulse 67 07/29/24 10:20 Resp 18 07/29/24 10:20 BP 111/71 07/29/24 10:20 Pulse Ox 98 07/29/24 10:20 Oxygen Delivery Method Room Air 07/29/24 10:20 BMI result Body Mass Index 28.5 Tobacco/Smoking Status: Tobacco use Status Tobacco use date assessed 01/14/24 07/29/24 10:13 Patient Tobacco Use Status Never used Tobacco 07/29/24 10:13 e-Cigarette/Vaping Use Never Used 07/29/24 10:13 Thrive Assessment: Date of Thrive Assessment Date Thrive assessed 04/29/24 07/29/24 10:13 Const General: well developed; No acute distress Nutritional Appearance: well nourished Orientation/consciousness: patient oriented x3 HENMT Head: Yes normocephalic and Yes atraumatic Eyes General: appearance normal, both eyes and all related structures Pupils: Equal, round and reactive pupils present EOM: EOMs intact bilaterally Resp Effort & Inspection: normal respiratory effort Auscultation: clear to auscultation bilaterally Cardio Rate: regular rate Rhythm: regular rhythm Heart sounds: S1 normal heart sound present, S2 normal heart sound present, no gallops, no murmurs and no rubs Neuro General: patient oriented x3 and gait normal Cranial nerves: Yes Equal, round and reactive pupils present Psych Affect: normal affect Assessment and Plan Assessment & Plan (1) High blood pressure: Code(s): I10 - Essential (primary) hypertension Plan: Blood?pressure?is?well?controlled.??Goal?is?less?than?140/90 Continue?current?medication (2) Pre-diabetes: Code(s): R73.03 - Prediabetes Plan: A1c?remains?at?5.7%. Stable Continue?diet?low?in?sugars?and?starches (3) Moderate persistent asthma: Code(s): J45.40 - Moderate persistent asthma, uncomplicated Plan: Patient?has?Ventolin?rescue?inhaler?but?does?not?have?a?controller?medication Tried?sending?mometasone?and?this?was?not?covered?so?was?too?expensive. Will?try?QVAR Asking?MA to check?with?her?insurance?to?see?what?would?be?covered?if?this?is?not. Medications: New beclomethasone dipropionate 40 mcg/actuation (Qvar RediHaler) 2 inhalations inhalation Q12H 30 days 10.6 grams 3RF Discontinued mometasone administer 1 hour before bedtime Discontinued Reason: Duplicate 2 inhalations inhalation DAILY 30 days 1 ea 2RF Coding Level of Care Code Est Pt Level 3 (20322) Diagnoses High blood pressure I10 Pre-diabetes R73.03 Moderate persistent asthma J45.40
[2024-07-29 10:20] VITALS: BP 111/71; PULSE 67; RESP 18; TEMP 37; O2SAT 98; BMI 28.5
== END 2024-07-29 10:31 | disposition home or self-care (01) ==
PROVIDERS: PCP Family Medicine; Visit Provider Family Medicine
DX: I10 Essential (primary) hypertension (principal); R73.03 Prediabetes; J45.40 Moderate persistent asthma, uncomplicated
CPT/HCPCS: 99213

== ENCOUNTER 2024-09-04 11:01 | Outpatient (AMB) | payer OTHER, SELFPAY ==
[2024-09-04 11:17] VITALS: BMI 28.8
--- NOTE | 2024-09-04 11:17 | AM.OFFVISNUR ---
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 She notes she has some minimal vag bleeding just before her next scheduled injection. No c/o today. Pt tolerated injection well and she will schedule her next injection in 12 weeks. Pt verbalizes understanding and agrees with plan. No further questions. Office Procedures Depo Questionnaire If YES to any of the following questions, please consult a provider. Date of last injection: 06/12/24 Date of last gynecology exam: 03/04/24 Menstrual pattern since last injection has been: Light Irregular bleeding?: No Breast lumps or other breast changes?: No Changes in weight or appetite?: No Depression or changes in mood?: No Abnormal hair growth or loss?: No Skin problems (rash, acne, discoloration)?: No Pain at the injection site?: No Headaches?: No Nervousness?: No Abdominal pain or cramping?: No Dizziness or nausea?: No Fatigue or weakness?: No Decrease in sexual drive?: No Chest pain or shortness of breath?: No Swelling in arms or legs?: No Form completed by?: Char Lopez RN Office Meds Depo-Provera 150 mg/mL intramuscular syringe Performing Provider: Yesenia Damon CNM Performing Location: [facility] [place] [facility] Administered by: Char Lopez on 09/04/24 11:20 Dose Route Admin Location Dispensed Lot Number Expiration Date [facility] Analytical Lab Technician 150 mg IM right deltoid 1 mL [id number] 10/24/26 09387-155-24 [facility] Assessment & Plan Assessment & Plan (1) On Depo-Provera for contraception: Comment: Patient has been on Depo since 2016 is not interested in a Mirena does not want return of heavy menses. Last injection was due February 13 restart a sap, denies any risk of , continue abstaining until at least 2 weeks after Depo restart. Discussed calcium intake weight-bearing exercise and protection of bones. Code(s): Z30.42 - Encounter for surveillance of injectable contraceptive Category: Medical Plan Pt will schedule her next injection in 12 weeks. Orders: Orders AMB Medroxyprogesterone Injection Patient Supplied Today Z30.42 - Encounter for surveillance of injectable contraceptive Medications: New Depo-Provera (medroxyprogesterone) 150 mg IM ONCE 1 mL 0RF NS Z30.42 - Encounter for surveillance of injectable contraceptive
== END 2024-09-04 11:14 | disposition home or self-care (01) ==
LOC: HO.HWS 11:01
PROVIDERS: PCP Family Medicine; Visit Provider Advanced Practice Midwife
DX: Z30.42 Encounter for surveillance of injectable contraceptive (principal)

== ENCOUNTER → 2024-09-04 11:01 | Outpatient (BNVA) | payer OTHER, SELFPAY | PROVIDERS: PCP Family Medicine; Visit Provider Advanced Practice Midwife | DX: Z30.42 Encounter for surveillance of injectable contraceptive (principal) | CPT/HCPCS: 96372; 99211; J1050 ==

== ENCOUNTER 2024-11-20 09:43 | Outpatient (AMB) | payer OTHER, SELFPAY ==
[2024-11-20 10:02] VITALS: BMI 29.1
--- NOTE | 2024-11-20 10:02 | AM.OFFVISNUR ---
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 No c/o. Pt tolerated injection well. She will schedule her next injection in 12 weeks. Pt verbalizes understanding and agrees with plan. No further questions. Office Procedures Depo Questionnaire If YES to any of the following questions, please consult a provider. Date of last injection: 09/04/24 Date of last gynecology exam: 03/04/24 Menstrual pattern since last injection has been: Not Applicable Irregular bleeding?: No Breast lumps or other breast changes?: No Changes in weight or appetite?: No Depression or changes in mood?: No Abnormal hair growth or loss?: No Skin problems (rash, acne, discoloration)?: No Pain at the injection site?: No Headaches?: No Nervousness?: No Abdominal pain or cramping?: No Dizziness or nausea?: No Fatigue or weakness?: No Decrease in sexual drive?: No Chest pain or shortness of breath?: No Swelling in arms or legs?: No Form completed by?: Char Lopez RN Office Meds Depo-Provera 150 mg/mL intramuscular syringe Performing Provider: Yesenia Damon CNM Performing Location: [facility] Administered by: Char Lopez on 11/20/24 10:06 Dose Route Admin Location Dispensed Lot Number Expiration Date [facility] Technical Operator 150 mg IM left deltoid 1 mL [id number] 10/24/26 19517-306-28 [facility] Assessment & Plan Assessment & Plan (1) On Depo-Provera for contraception: Comment: Patient has been on Depo since 2016 is not interested in a Mirena does not want return of heavy menses. Code(s): Z30.42 - Encounter for surveillance of injectable contraceptive Category: Social Hx Plan: Patient will schedule next Depo injectin in 12 weeks. Pt verbalizes understanding and agrees with plan. No further questions. Orders: Orders AMB Medroxyprogesterone Injection Patient Supplied Today Z30.42 - Encounter for surveillance of injectable contraceptive Medications: New Depo-Provera (medroxyprogesterone) 150 mg IM ONCE 1 mL 0RF NS Z30.42 - Encounter for surveillance of injectable contraceptive
== END 2024-11-20 09:59 | disposition home or self-care (01) ==
LOC: HO.HWS 09:43
PROVIDERS: PCP Family Medicine; Visit Provider Advanced Practice Midwife
DX: Z30.42 Encounter for surveillance of injectable contraceptive (principal)

== ENCOUNTER → 2024-11-20 09:43 | Outpatient (BNVA) | payer OTHER, SELFPAY | PROVIDERS: PCP Family Medicine; Visit Provider Advanced Practice Midwife | DX: Z30.42 Encounter for surveillance of injectable contraceptive (principal) | CPT/HCPCS: 96372; 99211; J1050 ==

== ENCOUNTER 2024-12-02 10:24 | Outpatient (AMB) | payer OTHER, SELFPAY ==
--- NOTE | 2024-12-02 10:26 | A.OFFPC_ITS ---
Vital Signs 12/02/24 10:28 Height 5 ft 5 in Weight 174 lb 4 oz BMI 29.0 BP 112/68 Blood Pressure Location Lt brachial Position Sitting Respiration 14 Pulse 68 Pulse Source Pulse Oximeter Temp 98.5 F Temp Source Oral Pulse Oximetry (%) 97 Oxygen Delivery Method Room Air Intake Visit Reasons: f/u hypertension Intake Note: follow up for htn Allergies seafood Allergy (Mild, Verified 12/02/24 10:26) Anaphylaxis treenuts Allergy (Mild, Uncoded 11/20/24 10:03) rash, anaphylaxis Medication List - Last Reconciled 12/02/24 by Ross Ocampo MD albuterol sulfate 90 mcg/actuation (Ventolin HFA) 2 puffs inhalation Q4-6H PRN 30 days atenolol 50 mg PO DAILY 90 days budesonide 180 mcg/actuation (Pulmicort Flexhaler) 1 inh inhalation BID 30 days cholecalciferol (vitamin D3) 250 mcg PO DAILY clonidine HCl 0.1 mg PO BID epinephrine (EpiPen) 0.3 mg IM Q4H PRN escitalopram oxalate mg PO medroxyprogesterone (Depo-Provera) 150 mg IM Q2TWSONX medroxyprogesterone (Depo-Provera) 150 mg IM Q12W multivitamin 1 tab PO DAILY Tobacco use date assessed: 01/14/24 Dental Screening Dental Screen Date: 01/14/24 HPI f/u hypertension HPI Details Patient presents?to?follow-up?hypertension?and?pre?diabetes. She?is?taking?atenolol?without?any?problems. Blood?pressure?today?is?112/68 Diagnosed?with?pre?diabetes?at?last?visit.??A1c?climbed?from?5.7%?to?5.9%?today. We?also?discussed?that?her?LDL?cholesterol?was?too?high?when?checked?in?December . [facility] History Depression Anxiety Acute eczema Gestational diabetes Arthritis High blood pressure Asthma Surgical History [place] teeth extracted Family History Mother Diabetes Endometrial cancer Father High blood pressure High cholesterol Diabetes Maternal Grandmother Colon cancer Social History Household Members: Spouse and Children Housing: House Are you a primary healthcare receptionist to a significant other at home: No Do you presently have visiting nurse or other home services: No 75 years or older and lives alone: No Alcohol intake: never Patient Tobacco Use Status: Never used Tobacco e-Cigarette/Vaping Use: Never Used service: No Current occupational status: employed 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 1. Little interest or pleasure in doing things: not at all 2. Feeling down, depressed, or hopeless: not at all 3. Trouble falling or staying asleep, or sleeping too much: not at all 4. Feeling tired or having little energy: several days 5. Poor appetite or overeating: not at all 6. Feeling bad about yourself - or that you are a failure or have let yourself or your family down: not at all 7. Trouble concentrating on things, such as reading the newspaper or watching television: not at all 8. Moving or speaking so slowly that other people could have noticed. Or the opposite - being so fidgety or restless that you have been moving around a lot more than usual: not at all 9. Thoughts that you would be better off or of hurting yourself in some way: not at all Total score: 1 Source: Developed by Drs. John Paul Worrell, Esmer Parada, Everette Hay and colleagues, with an educational caleb from [employer]. Thrive Questionnaire Date Thrive assessed: 04/29/24 I am a: Patient What is your living situation today?: I have a steady place to live Within the past 12 months, did the food you bought not last and you didn't have the money to get more?: Never true Within the past 12 months, did you worry whether your food would run out before you got money to buy more?: Never true Do you have trouble paying for medicines?: No Do you have trouble getting transportation to medical appointments?: No Do you have trouble paying your heating and electricity bill?: No Do you have trouble taking care of your child, family member or friend?: No Do you have trouble with day-to-day activities such as bathing, preparing meals, shopping, managing finances, etc.?: No Are you currently unemployed and looking for a job?: No Are you interested in more education?: No Please select the resources that you would like help with: None Currently or been in a relationship where the following occur: No concerns reported THRIVE Score: 0 AUDIT C Alcohol Use Questionnaire (AUDIT-C) 1. How often do you have a drink containing alcohol?: Never 3. How often do you have six or more drinks on one occasion?: Never Total Score: 0 RILEY-7 AMB Questionnaire RILEY-7 Date RILEY - 7 assessed: 01/14/24 Feeling nervous, anxious, or on edge: 1 = Several days Not being able to stop or control worryin = Not at all Worrying too much about different things: 1 = Several days Trouble relaxin = Several days Being so restless that it is hard to sit still: 0 = Not at all Becoming easily annoyed or irritable: 0 = Not at all Feeling afraid as if something awful might happen: 0 = Not at all Total RILEY-7 score (0-4 normal; 5-9 mild; 10-14 moderate; 15-21 severe): 3 Source: Developed by Drs. John Paul Worrell, Emser Parada, Everette Hay and colleagues, with an educational caleb from [employer]. Review of Systems Const Denies chills, Denies fatigue, Denies fever(s), Denies headache(s) and Denies w eakness ENT Denies dizziness and Denies headache(s) Card Denies chest pain, Denies lightheadedness, Denies dyspnea and Denies other (Palpitations) Resp Denies cough, Denies dyspnea, Denies wheezing and Denies other ( shortness of breath) Musc Denies numbness and Denies tingling Neuro Denies dizziness, Denies headache(s), Denies numbness, Denies tingling, Denies paresthesias and Denies weakness Psych Denies anxiety and Denies depression Endo Denies fatigue Aller/Immun Denies wheezing Physical exam (Primary Care) Vital Signs: Last Vital Signs Temp 98.5 F 12/02/24 10:28 Pulse 68 12/02/24 10:28 Resp 14 12/02/24 10:28 BP 112/68 12/02/24 10:28 Pulse Ox 97 12/02/24 10:28 Oxygen Delivery Method Room Air 12/02/24 10:28 BMI result Body Mass Index 29.0 Tobacco/Smoking Status: Tobacco use Status Tobacco use date assessed 01/14/24 12/02/24 10:32 Patient Tobacco Use Status Never used Tobacco 12/02/24 10:32 e-Cigarette/Vaping Use Never Used 12/02/24 10:32 PHQ-9: PHQ-9 Score PHQ-9: Total score 1 12/02/24 10:32 Thrive Assessment: Date of Thrive Assessment Date Thrive assessed 04/29/24 12/02/24 10:32 Currently or been in a relationship where the following occur: No concerns reported Const General: no acute distress and well developed Nutritional Appearance: well nourished Orientation/consciousness: patient oriented x3 HENMT Head: Yes normocephalic and Yes atraumatic Eyes General: appearance normal, both eyes and all related structures Pupils: Equal, round and reactive pupils present EOM: EOMs intact bilaterally Resp Effort & Inspection: normal respiratory effort Auscultation: clear to auscultation bilaterally Cardio Rate: regular rate Rhythm: regular rhythm Heart sounds: S1 normal heart sound present, S2 normal heart sound present, no gallops, no murmurs and no rubs Neuro General: patient oriented x3 and gait normal Cranial nerves: Yes Equal, round and reactive pupils present Psych Affect: normal affect Coding Level of Care Code Est Pt Level 4 (34866) Diagnoses Pre-diabetes R73.03 High blood pressure I10 Elevated LDL cholesterol level E78.00 Assessment & Plan Assessment & Plan (1) Pre-diabetes: Code(s): R73.03 - Prediabetes Category: Medical Plan: A1c?climbed?from?5.7%?to?5.9?%. Encouraged?diet?lower?in?sugars?and?starches Will?refer?to?nurse?navigator?for?nutrition?teaching (2) High blood pressure: Code(s): I10 - Essential (primary) hypertension Category: Medical Plan: Blood?pressure?is?controlled?on?atenolol.??Goal?is?less?than?140/90 Continue?current?medication (3) Elevated LDL cholesterol level: Code(s): E78.00 - Pure hypercholesterolemia, unspecified Category: Medical Plan: Her?LDL?cholesterol?is?too?high. Encouraged?a?diet?lower?in?saturated?fats?and?cholesterol Plan Patient presents?to?follow-up?hypertension?and?pre?diabetes. She?is?taking?atenolol?without?any?problems. Blood?pressure?today?is?112/68 Diagnosed?with?pre?diabetes?at?last?visit.??A1c?climbed?from?5.7%?to?5.9%?today. Orders: Orders Comprehensive [place]. Panel Fast Today R73.03 - Prediabetes, Z00.00 - Encounter for general adult medical examination without abnormal findings Lipid Panel Today E78.00 - Pure hypercholesterolemia, unspecified, Z00.00 - Encounter for general adult medical examination without abnormal findings Microalbumin, Random (w Creat) Today I10 - Essential (primary) hypertension Referrals Nurse Navigator Referral R73.03 - Prediabetes, Z86.32 - Personal history of gestational diabetes
[2024-12-02 10:28] VITALS: BP 112/68; PULSE 68; RESP 14; TEMP 36.9; O2SAT 97; BMI 29.0
== END 2024-12-02 11:07 | disposition home or self-care (01) ==
PROVIDERS: PCP Family Medicine; Visit Provider Family Medicine
DX: R73.03 Prediabetes (principal); I10 Essential (primary) hypertension; E78.00 Pure hypercholesterolemia, unspecified

== ENCOUNTER → 2024-12-02 10:24 | Outpatient (BNVA) | payer OTHER, SELFPAY | PROVIDERS: PCP Family Medicine; Visit Provider Family Medicine | DX: R73.03 Prediabetes (principal); I10 Essential (primary) hypertension; E78.00 Pure hypercholesterolemia, unspecified; Z79.899 Other long term (current) drug therapy | CPT/HCPCS: 83036; 96127 ==